=== PATIENT | female | born 1995 | race African-American/Black ===

== ENCOUNTER 2017-05-29 13:38 | Emergency (ER) | payer OTHER ==
[~2017-05-29] VITALS: Ht 162.6 cm; Wt 55.0 kg
[2017-05-29 13:44] VITALS: BP 106/61
== END 2017-05-29 14:25 | disposition home or self-care (01) ==
LOC: ER 13:56
DX: F12.90 Cannabis use, unspecified, uncomplicated (principal); F41.0 Panic disorder [episodic paroxysmal anxiety]
CPT/HCPCS: 99283